=== PATIENT | male | born 1960 | race Caucasian/White ===

== ENCOUNTER 2024-07-23 08:18 | Outpatient (AMB) | payer BC, SELFPAY ==
--- NOTE | 2024-07-23 08:20 | A.OFFVIS_ITS ---
Vital Signs 07/23/24 08:31 Height 5 ft 10 in Weight 226 lb 4 oz BMI 32.5 BP 150/74 H Blood Pressure Location Lt brachial Position Sitting Respiration 16 Pulse 53 Pulse Source Pulse Oximeter Pulse Oximetry (%) 98 Oxygen Delivery Method Room Air Intake Visit Reasons: Low Back Pain Intake Note: Patient comes in for initial visit was referred by [facility] adult medicine. Reports pain 05/07. Allergies oxycodone Allergy (Mild, Verified 07/23/24 08:31) ITCHING acetaminophen [Percocet] Allergy (Unknown, Verified 07/23/24 08:31) Unknown codeine Adverse Reaction (Severe, Verified 07/23/24 08:31) VIOLENT VOMITING Codeine Allergy (Unknown, Uncoded 07/23/24 08:31) Unknown HPI Comments Details: Willard is very pleasant 64 years old gentleman who presents in my office with complains on pain in the area of the left lower back in the left hip. He relates his pain to the trauma in 2007 when he fell into the uncovered pit. He injured his groin and that required some stitches, he started to experience pain as above after the incident. He never formally address this pain with any medical facility or physician he went for chiropractor and had chiropractic manipulations every week for 5 years. He reports that initially he received some pain relief from chiropractic manipulations but later on they stopped being effective. He reports that he can not sleep normally because of his pain he can do activities of daily living he can take care of himself but he can not function normally. He reports his pain today 05/07. He reports that he is self mobile. He reports in terms of tissue damage 8 his pain as pinching, cramping, wrenching sensation. [facility] but reports no help. Chiropractic manipulations as above. No images. Past medical history of coronary artery disease. Past surgical history heart stent in 2006 and coronary bypass . Social history he is working full-time denies smoking denies drinking alcohol drinks coffee denies recreational drugs. Review of Systems Eyes Denies blurry vision ENT Reports Normal hearing present and Denies sore throat Card Denies dyspnea Resp Denies cough and Denies dyspnea GI Denies constipation and Denies diarrhea Denies dysuria and Denies urinary frequency Musc Reports as per HPI Neuro Reports Normal hearing present, Denies Abnormal speech present and Denies Sensory deficit (Neuro) Psych Reports abnormal sleep pattern and Denies depression Physical Exam Vital Signs: Last Vital Signs Pulse 53 07/23/24 08:31 Resp 16 07/23/24 08:31 BP 150/74 H 07/23/24 08:31 Pulse Ox 98 07/23/24 08:31 Oxygen Delivery Method Room Air 07/23/24 08:31 BMI result Body Mass Index 32.5 Const General: no acute distress Nutritional Appearance: obese (Trivial obesity) Orientation/consciousness: patient oriented x3 Eyes General: appearance normal, both eyes and all related structures Pupils: Equal, round and reactive pupils present EOM: EOMs intact bilaterally Neck Neck: Yes full ROM Chest Chest palpation & inspection: normal inspection of the chest Resp Effort & Inspection: normal respiratory effort, able to speak in complete sentences, normal respiratory pattern, no audible wheezes and no cough Cardio Jugular venous distension: no JVD GI Inspection: Yes normal to inspection Back/Spine/Pelvis Other: He is able to stand on bilateral tiptoes and bilateral heels without any difficulty demonstrating normal strength of bilateral lower extremities. Unable to flex himself forward more than 20 degrees. Very stiff with attempt to flex backwards. Loading test appeared to be negative on the right and equivocal on the left. Stinchfield test is positive on the left. Fourteen finger test is positive on the left. Gaenslen test is negative on the bilaterally, due to generalized stiffness unable to perform the test properly. however Len k/MEEK test is distinctly positive on the left. Neuro General: patient oriented x3 and gait normal Cranial nerves: Yes CN's II-XII intact bilaterally, Yes Equal, round and reactive pupils present, Yes Normal hearing present and Yes Ability to bilaterally elevate shoulders present Speech: No Abnormal speech present Gait exam (Neuro): Normal gait present Motor exam (neuro): 5/5 motor strength present throughout Sensory Exam: No Sensory deficit (Neuro) Extrem General: No pedal edema Psych Speech and movement: Normal speech and movement present Affect: normal affect Attitude: cooperative Thought process: Normal thought process present Thought content: Normal thought content present Insight: Good insight present (Psych) Judgement: Good judgement present (Psych) Assessment & Plan Assessment & Plan (1) Osteoarthritis of left hip: Code(s): M16.12 - Unilateral primary osteoarthritis, left hip Category: Medical (2) Chronic left SI joint pain: Code(s): M53.3 - Sacrococcygeal disorders, not elsewhere classified; G89.29 - Other chronic pain Category: Medical (3) Sacroiliitis: Code(s): M46.1 - Sacroiliitis, not elsewhere classified Category: Medical Plan 1. This patient is differential diagnosis is between left hip osteoarthritis and left sacroiliitis which is far more likely. I will schedule this patient for diagnostic sacroiliac joint injection. To rule out any other concurrent pathology I will send patient for hip pelvis x-ray to rule out possible other bones involvement. 2. I will make this patient after diagnostic sacroiliac joint injection and we will discuss results of the injection and possibility of further treatment. Orders: Orders XR pelvis min 3V Today G89.29 - Other chronic pain, M16.12 - Unilateral primary osteoarthritis, left hip, M46.1 - Sacroiliitis, not elsewhere classified, M53.3 - Sacrococcygeal disorders, not elsewhere classified Coding Level of Care Code New Pt Level 3 (21078) Diagnoses Osteoarthritis of left hip M16.12 Chronic left SI joint pain M53.3; G89.29 Sacroiliitis M46.1
[2024-07-23 08:31] VITALS: BP 150/74; PULSE 53; RESP 16; O2SAT 98; BMI 32.5
== END 2024-07-23 08:46 | disposition home or self-care (01) ==
PROVIDERS: PCP Family Medicine; Referring Provider Family Medicine; Visit Provider Anesthesiology
DX: M16.12 Unilateral primary osteoarthritis, left hip (principal); M53.3 Sacrococcygeal disorders, not elsewhere classified; G89.29 Other chronic pain; M46.1 Sacroiliitis, not elsewhere classified
CPT/HCPCS: 99203

== ENCOUNTER 2024-07-23 08:18 | Outpatient (REF) | payer BC, SELFPAY ==
--- NOTE | ~2024-07-23 | XR_ITS ---
EXAMINATION: XR PELVIS CLINICAL INFORMATION: Sacroiliitis COMPARISON: None available. TECHNIQUE: AP view of the pelvis. FINDINGS: Severe left hip osteoarthritic changes with joint space narrowing, subchondral sclerosis, osteophytosis and mild deformity of the left femur head. Moderate right hip osteoarthritic changes with joint space narrowing, subchondral sclerosis and osteophytosis. No acute fracture. Bilateral hips are adequately aligned. The pubic symphysis is intact. Degenerative changes involving the visualized lower lumbar spine. Mild periarticular sclerosis involving bilateral sacroiliac joints. Vascular calcifications. XR/XR pelvis 1-2V IMPRESSION: Severe left hip and moderate right hip osteoarthritic changes. Mild degenerative changes involving bilateral sacroiliac joints. Electronically signed by: Omar Alfred MD 07/23/2024 10:10 AM EDT
== END 2024-07-23 08:19 | disposition home or self-care (01) ==
LOC: HO.XRAY 08:18
PROVIDERS: PCP Family Medicine; Referring Provider Family Medicine; Visit Provider Anesthesiology
DX: M46.1 Sacroiliitis, not elsewhere classified (principal); M53.3 Sacrococcygeal disorders, not elsewhere classified; M16.12 Unilateral primary osteoarthritis, left hip; G89.29 Other chronic pain
CPT/HCPCS: 72170